=== PATIENT | female | born 1985 | race Caucasian/White ===

== ENCOUNTER 2016-08-10 10:03 | Emergency (ER) | payer BC ==
[2016-08-10 10:29] VITALS: TEMP 98
--- NOTE | 2016-08-10 11:32 | ED.PDOC ---
History of Present Illness - General Chief Complaint: Back Pain or Injury Stated Complaint: back pain Time Seen by Provider: 08/10/16 10:31 Source: patient Exam Limitations: no limitations - History of Present Illness Initial Comments: Patient presents with acute on chronic low back pain. She had a Rhizotomy almost two weeks ago. Is on Percocet but says that it isn't helping. Over the past week, she has had several episodes of her back "locking up". This morning she said she was leaning over and the pain caused her to fall to her knees. She says that she was told by her pain clinic to come to the ER for radiology. The pain is lower lumbar with radiation down both legs. No incontinence nor saddle anesthesia. Worse with movement, better with rest, multiple previous episodes. Aching and constant. No other complaints. Timing/Duration: constant, changing over time Severity: moderate Improving Factors: rest Worsening Factors: movement Associated Symptoms: denies symptoms Allergies/Adverse Reactions: Allergies Citalopram [From Celexa] Allergy (Verified 08/10/16 10:30) Morphine Allergy (Verified 08/10/16 10:30) Phenytoin [From Dilantin] Allergy (Verified 08/10/16 10:30) increases seizures Home Medications: Ambulatory Orders Sumatriptan Succinate 25 mg PO PRN PRN 04/21/14 Topiramate 100 mg PO DAILY 04/21/14 Acetaminophen W/ Codeine [Tylenol W/ CODEINE #3] 1 ea PO QID #14 11/21/14 Clindamycin HCl 300 mg PO Q8HRS #20 cap 11/21/14 Acetaminophen W/ Codeine [Tylenol W/ CODEINE #3] 1 - 2 ea PO Q4H PRN #20 Naproxen [Naprosyn] 500 mg PO BID #20 tab 12/05/14 Hydrocortisone 25 mg Supp [Anusol-Hc] 25 mg TN BID PRN #15 sup 07/29/15 Acetaminophen W/ Codeine [Tylenol w/Codeine 300-30 mg] 1 tab PO Q4HR PRN #30 tab 11/28/15 Prednisone [Deltasone] 20 mg PO DAILY #10 tab 11/28/15 Prednisone 10 mg PO BID #20 tab 01/22/16 Review of Systems - Review of Systems Constitutional: States: no symptoms reported EENTM: States: no symptoms reported Respiratory: States: no symptoms reported Cardiology: States: no symptoms reported Gastrointestinal/Abdominal: States: no symptoms reported Genitourinary: States: no symptoms reported Musculoskeletal: States: see HPI Skin: States: no symptoms reported Neurological: States: no symptoms reported Endocrine: States: no symptoms reported Hematologic/Lymphatic: States: no symptoms reported Past Medical History (General) - Patient Medical History Hx Seizures: Yes Hx Stroke: No Hx Dementia: No Hx Asthma: No Hx of COPD: No Hx Cardiac Disorders: No Hx Congestive Heart Failure: No Hx Pacemaker: No Hx Hypertension: No Hx Thyroid Disease: No Hx Diabetes: No Hx Gastroesophageal Reflux: No Hx Renal Disease: No Hx Cancer: No Hx of HIV: No Hx Hepatitis C: No Hx MRSA: No Surgical History: appendectomy, other - Vaccination History Hx Tetanus, Diphtheria Vaccination: No Hx Influenza Vaccination: No Hx Pneumococcal Vaccination: No - Social History Hx Tobacco Use: Yes Hx Chewing Tobacco Use: No Hx Alcohol Use: No Hx Substance Use: No Hx Substance Use Treatment: No Hx Depression: No Hx Physical Abuse: No Hx Emotional Abuse: No Hx Suspected Abuse: No - Activities of Daily Living Hospice Agency (if applicable):: None - Female History Patient is a Female of Child Bearing Age (10 -59 yrs old): Yes Patient : No Family Medical History - Family History Mother Family History: Unknown Physical Exam - Physical Exam General Appearance: Obvious distress Ears, Nose, Throat: normal ENT inspection Neck: non-tender, full range of motion, supple Respiratory: lungs clear Cardiovascular/Chest: regular rate, rhythm Gastrointestinal/Abdominal: normal bowel sounds, non tender, soft Extremity: other - positive straight and cross leg raises. Patient unable to cooperate with rest of exam due to pain. Neurologic: no motor/sensory deficits DTR: 2+: Patellar, left, Patellar, right Skin Exam: normal color Lymphatic: no adenopathy Progress - Progress Progress: 08/10/16 11:33 Toradol 30 mg IM x one. Patient given prescription for prednisone 20 mg po qd x 3 days and zofran 4 mg po q6H prn. We contacted her back pain doctor and verified that there was no radiology needed acutely. An appointment was made there and she was discharged in good condition. Departure - Departure Clinical Impression: Lumbar pain Disposition: Discharge to Home or Self Care Condition: Good Departure Forms: ED Discharge - Pt. Copy, Patient Portal Self Enrollment Diet: resume usual diet Activity: increase activity as tolerated Referrals: Kenton Fernando MD [Primary Care Provider] - 1-2 Weeks Home Medications: Ambulatory Orders Sumatriptan Succinate 25 mg PO PRN PRN 04/21/14 Topiramate 100 mg PO DAILY 04/21/14 Acetaminophen W/ Codeine [Tylenol W/ CODEINE #3] 1 ea PO QID #14 11/21/14 Clindamycin HCl 300 mg PO Q8HRS #20 cap 11/21/14 Acetaminophen W/ Codeine [Tylenol W/ CODEINE #3] 1 - 2 ea PO Q4H PRN #20 Naproxen [Naprosyn] 500 mg PO BID #20 tab 12/05/14 Hydrocortisone 25 mg Supp [Anusol-Hc] 25 mg TN BID PRN #15 sup 07/29/15 Acetaminophen W/ Codeine [Tylenol w/Codeine 300-30 mg] 1 tab PO Q4HR PRN #30 tab 11/28/15 Prednisone [Deltasone] 20 mg PO DAILY #10 tab 11/28/15 Prednisone 10 mg PO BID #20 tab 01/22/16 Additional Instructions: Follow up with your back surgeon tomorrow. Take medications as prescribed.
[2016-08-10] MEDS ORDERED: KETOROLAC TROMETHAMINE INJ 30 MG/ML VIAL IM ONE (11:41)
[2016-08-10 12:14] VITALS: BP 105/62; O2SAT 98
== END 2016-08-10 12:14 | disposition home or self-care (01) ==
LOC: ER 10:03
DX: M54.5 Low back pain (principal); G89.29 Other chronic pain; Z87.891 Personal history of nicotine dependence; Z79.899 Other long term (current) drug therapy; Z88.6 Allergy status to analgesic agent; Z88.8 Allergy status to other drugs, medicaments and biological substances

== ENCOUNTER 2017-02-13 17:10 | Emergency (ER) | payer BC ==
[2017-02-13 17:24] VITALS: TEMP 97.7; O2SAT 97
[2017-02-13] MEDS ORDERED: ONDANSETRON INJ 4 MG/2 ML VIAL IV ONE (17:48)
[2017-02-13] MEDS ORDERED: SODIUM CHLORIDE 0.9% 1000ML 1,000 ML IVS ONE (17:48)
--- NOTE | 2017-02-13 17:53 | ED.PDOC ---
History of Present Illness - General Source: patient, RN notes reviewed, Vital Signs reviewed, RN/MD Exam Limitations: no limitations - History of Present Illness Initial Comments: Patient presents to the ER with an episode of bradycardia. Reports she was doing housework and she bent down to get laundry out of the oven drier tender. When she stood back up she got lightheaded, dizzy, saw black spots and felt like she was going to pass out. She sat down and continued to be dizzy so she checked her pulse which went from 46 [address] Durbin's office, tubing drier , who advised her to call 911 and go to ER. She drove herself to the ER. She is feeling nauseated with some heartburn and "just not right". Denies chest pain or SOB. Spoke with Dr. Durbin who advised holding her Atenolol and having her follow up with him on . If still having issues with bradycardia will place a pacemaker. He did not feels she needed admission or extensive work up at this time as this is an ongoing issue with episodes of SVT, a. fib and bradycardia. Timing/Duration: 1-3 hours Severity: moderate Location: substernal Activities at Onset: activity - see above Prior Chest Pain/Cardiac Workup: cardiac cath, echocardiography, other - Had a loop recorder placed ~1 month ago Improving Factors: nothing Worsening Factors: nothing Nitro Today/Relief: no nitro taken today Aspirin Treatment Today: no aspirin today Associated Symptoms: nausea/vomiting <Cecilia Sevilla - Last Filed: 02/13/17 18:46> <Damian Harper - Last Filed: 02/13/17 19:44> - General Chief Complaint: Cardiovascular Problem Stated Complaint: bradycardia Time Seen by Provider: 02/13/17 17:15 - History of Present Illness Allergies/Adverse Reactions: Allergies Citalopram [From Celexa] Allergy (Verified 08/10/16 10:30) Morphine Allergy (Verified 08/10/16 10:30) Phenytoin [From Dilantin] Allergy (Verified 08/10/16 10:30) increases seizures Home Medications: Ambulatory Orders Atenolol [Tenormin] 12.5 mg PO DAILY 02/13/17 Furosemide 20 mg PO DAILY 02/13/17 Gabapentin 300 mg PO BID 02/13/17 Magnesium Chloride [Slow-Mag] 64 mg PO DAILY 02/13/17 Oxycodone W/ Acetaminophen [Percocet 10-325 mg] 1 tab PO TID 02/13/17 Pantoprazole Tablet [Protonix] 40 mg PO DAILY 02/13/17 Tizanidine HCl 4 mg PO TID 02/13/17 Review of Systems - Review of Systems Constitutional: States: no symptoms reported Respiratory: States: no symptoms reported. Denies: short of breath Cardiology: States: see HPI. Denies: chest pain Gastrointestinal/Abdominal: States: nausea. Denies: abdominal pain, vomiting Musculoskeletal: States: no symptoms reported Skin: States: no symptoms reported Neurological: States: see HPI All other Systems: No Change from Baseline <Cecilia Sevilla Last Filed: 02/13/17 18:46> Past Medical History (General) - Patient Medical History Hx Seizures: Yes Hx Stroke: No Hx Dementia: No Hx Asthma: No Hx of COPD: No Hx Cardiac Disorders: No Hx Congestive Heart Failure: No Hx Pacemaker: No Hx Hypertension: No Hx Thyroid Disease: No Hx Diabetes: No Hx Gastroesophageal Reflux: No Hx Renal Disease: No Hx Cancer: No Hx of HIV: No Hx Hepatitis C: No Hx MRSA: No Surgical History: appendectomy, other - Vaccination History Hx Tetanus, Diphtheria Vaccination: No Hx Influenza Vaccination: No Hx Pneumococcal Vaccination: No - Social History Hx Tobacco Use: Yes Hx Chewing Tobacco Use: No Hx Alcohol Use: No Hx Substance Use: No Hx Substance Use Treatment: No Hx Depression: No Hx Physical Abuse: No Hx Emotional Abuse: No Hx Suspected Abuse: No - Female History Patient : No <RoelCecilia Last Filed: 02/13/17 18:46> Family Medical History - Family History Mother Family History: Unknown <RoelCecilia Last Filed: 02/13/17 18:46> Physical Exam - Physical Exam General Appearance: Alert, Anxious, No apparent distress, Well Developed, Well Groomed, Well Hydrated, Well Nourished Neck: supple, normal inspection Respiratory: chest non-tender, lungs clear, normal breath sounds, no respiratory distress, no accessory muscle use Cardiovascular/Chest: no gallop, no murmur, bradycardia Extremity: normal range of motion, normal inspection Neurologic: alert, normal mood/affect, oriented x 3 Skin Exam: normal color, warm/dry Comments: Vital Signs 02/13/17 17:18 Temperature 97.7 F Pulse Rate [ 46 L apical] Respiratory 14 Rate Blood Pressure 122/64 [left brachial] O2 Sat by Pulse 97 Oximetry <Cecilia Sevilla - Last Filed: 02/13/17 18:46> Progress - Progress Progress: 02/13/17 18:37 HR has remained in the upper 40's to mid 50's 02/13/17 18:46 Patient given 1L NS bolus and Zofran. Now reports she feels a migraine coming on. Will give some Toradol as she normally takes AlevePM - EKG/XRAY/CT EKG: Isreal, Sinus, no ST T wave changes Comments: Rate 46 bpm <Cecilia Sevilla - Last Filed: 02/13/17 18:46> - Progress Progress: 02/13/17 19:43 discussed with patient her symptoms and presentation. Pt states that she feels improved but still has occ. palpitation. Discussed need for lab draw. pt initially refused but did consent with the compromise of her going home and being called if there is an abnormality. I explained to patient that I felt this was necessary given her lasix and magnesium supplementation. Pt will f/u with her pcp closely for further workup and will stop atenolol <Damian Harper - Last Filed: 02/13/17 19:44> Departure - Departure Diet: resume usual diet Activity: increase activity as tolerated <Cecilia Sevilla - Last Filed: 02/13/17 18:46> <Damian Harper - Last Filed: 02/13/17 19:44> - Departure Clinical Impression: Sinus bradycardia Disposition: Discharge to Home or Self Care Condition: Good Departure Forms: ED Discharge - Pt. Copy, Patient Portal Self Enrollment Instructions: Bradycardia Referrals: NEMO LAUREN [Primary Care Provider] - 1-2 Weeks Home Medications: Ambulatory Orders Atenolol [Tenormin] 12.5 mg PO DAILY 02/13/17 Furosemide 20 mg PO DAILY 02/13/17 Gabapentin 300 mg PO BID 02/13/17 Magnesium Chloride [Slow-Mag] 64 mg PO DAILY 02/13/17 Oxycodone W/ Acetaminophen [Percocet 10-325 mg] 1 tab PO TID 02/13/17 Pantoprazole Tablet [Protonix] 40 mg PO DAILY 02/13/17 Tizanidine HCl 4 mg PO TID 02/13/17 Additional Instructions: Follow up with Dr. Durbin, Lubrication Technician, on Monday02/15/17
[2017-02-13] MEDS ORDERED: KETOROLAC TROMETHAMINE INJ 30 MG/ML VIAL IV ONE (18:47)
[2017-02-13 20:14] VITALS: BP 112/74
== END 2017-02-13 20:15 | disposition home or self-care (01) ==
LOC: ER 17:10
DX: R00.1 Bradycardia, unspecified (principal); Z87.891 Personal history of nicotine dependence; Z88.8 Allergy status to other drugs, medicaments and biological substances; Z79.899 Other long term (current) drug therapy
CPT/HCPCS: 36415; 80048; 83735; 93005; J1885; J2405; J7030

== ENCOUNTER → 2017-05-29 | Outpatient (CLI) | payer BC ==
--- NOTE | 2017-05-29 16:38 | RAD ---
EXAM DESCRIPTION: Thoracic spine CLINICAL HISTORY: Back pain COMPARISON: Chest radiographs of March 21, 2013 TECHNIQUE: Three views of thoracic spine FINDINGS: Interval accentuation of thoracic kyphosis due to minimal to moderate anterior wedging in three consecutive thoracic vertebral level (T8-T10) since prior study. Remaining Thoracic vertebral heights are intact without apparent compression injury, obvious spondylolysis nor spondylolisthesis. Intervertebral disc heights are variably reduced IMPRESSION: Interval changes of compression injuries and vertebral plasty in three consecutive lower thoracic vertebral levels. No evidence of additional compression injury. Electronically signed by: Dudley Carvalho MD 05/29/2017 4:37 PM [facility]
== END ==
LOC: RAD 16:01
PROVIDERS: ATTEND Nurse Practitioner Family
DX: M54.6 Pain in thoracic spine (principal)

== ENCOUNTER 2017-08-14 20:30 | Emergency (ER) | payer BC ==
[2017-08-14] MEDS ORDERED: SODIUM CHLORIDE 0.9% 1000ML 1,000 ML IVS ONE (21:05)
[2017-08-14] MEDS ORDERED: NALOXONE HCL INJ 1 MG/ML SYG IV ONE (21:05)
--- NOTE | 2017-08-14 21:09 | ED.PDOC ---
History of Present Illness - General Chief Complaint: Neuro Symptoms/Deficits Stated Complaint: altered mental status Time Seen by Provider: 08/14/17 21:02 Source: family Exam Limitations: clinical condition - History of Present Illness Timing/Duration: unsure, 1-3 hours, other - pt was normal at 1600 hrs. 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 Severity: severe Improving Factors: nothing Worsening Factors: nothing Associated Symptoms: denies symptoms Allergies/Adverse Reactions: Allergies Citalopram [From Celexa] Allergy (Verified 08/10/16 10:30) Morphine Allergy (Verified 08/10/16 10:30) Phenytoin [From Dilantin] Allergy (Verified 08/10/16 10:30) increases seizures Home Medications: Ambulatory Orders Magnesium Chloride [Slow-Mag] 64 mg PO DAILY 02/13/17 Pantoprazole Tablet [Protonix] 40 mg PO DAILY 02/13/17 Bupropion HCl [Bupropion HCl ER] 100 mg PO 08/14/17 Cyclobenzaprine HCl 10 mg PO 08/14/17 Flecainide [Tambocor] 50 mg PO 08/14/17 Meloxicam 7.5 mg PO 08/14/17 Promethazine HCl 08/14/17 Review of Systems - Review of Systems Unable to Obtain Due To: condition - pt is poorly responsive Past Medical History (General) - Patient Medical History Hx Seizures: Yes Hx Stroke: No Hx Dementia: No Hx Asthma: No Hx of COPD: No Hx Cardiac Disorders: No Hx Congestive Heart Failure: No Hx Pacemaker: No Hx Hypertension: No Hx Thyroid Disease: No Hx Diabetes: No Hx Gastroesophageal Reflux: No Hx Renal Disease: No Hx Cancer: No Hx of HIV: No Hx Hepatitis C: No Hx MRSA: No - Vaccination History Hx Tetanus, Diphtheria Vaccination: No Hx Influenza Vaccination: No Hx Pneumococcal Vaccination: No Immunizations Up to Date: No - Social History Hx Tobacco Use: Yes Hx Chewing Tobacco Use: No Hx Alcohol Use: Yes - occasional Hx Substance Use: Yes - Marijuana Hx Substance Use Treatment: No Hx Depression: No Hx Physical Abuse: No Hx Emotional Abuse: No Hx Suspected Abuse: No - Female History Patient : No Family Medical History - Family History Mother Family History: Unknown Physical Exam - Physical Exam General Appearance: Well Nourished, Other - very somnolent Eye Exam: bilateral normal Ears, Nose, Throat: normal ENT inspection, normal pharynx Neck: non-tender, full range of motion Respiratory: lungs clear, no respiratory distress Cardiovascular/Chest: normal peripheral pulses, regular rate, rhythm, no edema Gastrointestinal/Abdominal: normal bowel sounds, non tender, soft Neurologic: other - very somnolent Skin Exam: normal color, warm/dry Progress - EKG/XRAY/CT EKG: Sinus, no ST T wave changes Comments: rate 75, WI 150, QRS 98, QTc 475 Departure - Departure Clinical Impression: Alcohol use with intoxication Disposition: Discharge to Home or Self Care Departure Forms: ED Discharge - Pt. 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
--- NOTE | 2017-08-14 22:03 | RAD ---
EXAM DESCRIPTION: Chest,1 View CLINICAL HISTORY: ams COMPARISON: 05/29/2017 FINDINGS: Cardiac silhouette is within normal limits. There is no focal parenchymal or pleural disease. Visualized osseous structures are within normal limits. IMPRESSION: No evidence of acute cardiopulmonary disease. Electronically signed by: Grey Che 08/14/2017 10:01 PM CDT
--- NOTE | 2017-08-14 22:05 | CT ---
EXAM DESCRIPTION: Head CLINICAL HISTORY: ams COMPARISON: January 26, 2013 TECHNIQUE: Contiguous axial CT images of the head were obtained. Coronal and sagittal reconstructions were created from the axial data. This exam was performed according to our departmental dose-optimization program, which includes automated exposure control, adjustment of the mA and/or kV according to patient size and/or use of iterative reconstruction technique. FINDINGS: Positioning limits sensitivity. There is no evidence of acute mass, mass effect, midline shift or hemorrhage. The ventricles and extra-axial CSF spaces are unremarkable. The brain parenchyma appears normal for the patient's age. No acute abnormalities of the bones is seen. IMPRESSION: No acute intracranial abnormality. Electronically signed by: Grey Che 08/14/2017 10:04 PM CDT
[2017-08-14 22:39] VITALS: BP 118/68; TEMP 97.2; O2SAT 97
== END 2017-08-14 22:39 | disposition home or self-care (01) ==
LOC: ER 20:30
DX: F10.129 Alcohol abuse with intoxication, unspecified (principal); Y90.7 Blood alcohol level of 200-239 mg/100 ml; Z87.891 Personal history of nicotine dependence
CPT/HCPCS: 36415; 36600; 70450; 71045; 80053; 80307; 80320; 81001; 81025; 82803; 82805; 85025; 93005; J2310; J7030

== ENCOUNTER → 2017-08-14 | Outpatient (CLI) | payer BC ==
--- NOTE | 2017-08-14 15:52 | US ---
EXAM DESCRIPTION: Breast,Right: Ultrasound CLINICAL HISTORY: 31 yearsFemaleUNSPECIFIED LUMP lateral to the nipple, patient feels pulling sensation to the left arm.. COMPARISON: none. TECHNIQUE: Transcutaneous scanning of the right breast utilizing two-dimensional and Doppler modes. Scanning performed by the mac developer and Dr. Freeman. FINDINGS: Scanning the periareolar soft tissues and lateral breast from the nipple to the axilla. Mostly fibroglandular echotexture with minimal fatty echotexture. No distinct solid mass or cyst. No parenchymal edema or large calcifications. Normal Doppler vascularity. No overlying skin changes. IMPRESSION: BI-RADS CATEGORY: 2 - BENIGN FINDINGS. FOLLOW UP: Routine digital bilateral screening, at age 38. The FINDINGS and the FOLLOW-UP plan were reviewed in person with the patient after the examination. Written communication explaining the IMPRESSION and FOLLOW-UP will be mailed to the patient and referring care provider. According to the [employer], yearly mammograms are recommended starting at age 40 and continuing as long as a woman is in good health. Any breast change noted on a breast self-exam should be reported promptly to the patient's healthcare provider. Breast MRI is recommended for women with an approximately 20-25% or greater lifetime risk of breast cancer, including women with a strong family history of breast or ovarian cancer and women who have been treated for Hodgkin's disease. A negative ultrasound report should not delay tissue diagnosis in patients with significant clinical history or physical findings. Extremely dense breast tissue limits the sensitivity of digital mammography. Electronically signed by: Gery Freeman MD 08/14/2017 3:51 PM CDT
== END ==
LOC: US 09:22
PROVIDERS: ATTEND Nurse Practitioner Family
DX: N63.0 Unspecified lump in unspecified breast (principal)

== ENCOUNTER → 2017-10-13 | Outpatient (CLI) | payer BC | LOC: LAB.O 10-12 17:12 | PROVIDERS: ATTEND Nurse Practitioner Family | DX: R23.3 Spontaneous ecchymoses (principal) ==

== ENCOUNTER → 2017-10-19 | Outpatient (CLI) | payer BC ==
--- NOTE | 2017-10-19 09:33 | MRI ---
EXAM DESCRIPTION: Lumbar Spine w/o Contrast CLINICAL HISTORY: 32 years Female, DISC DISORDER LUMBAR REGION COMPARISON: None available. TECHNIQUE: Multiplanar multiecho imaging of the lumbar spine was performed without intravenous contrast administration. FINDINGS: The vertebral body heights are well-maintained with no acute compression deformity. Multilevel intervertebral disc space narrowing is noted. The conus medullaris terminates at L1 vertebral body. The visualized spinal cord demonstrates no signal abnormality. L1-L2: No disc bulge. Mild facet arthropathy. L2-L3: No disc bulge. Mild facet arthropathy. L3-L4: No disc bulge. Bilateral facet arthropathy. L4-L5: No disc bulge. Bilateral facet arthropathy. L5-S1: Mild diffuse disc bulge asymmetric to the left with resultant abutment of the exiting left L5 nerve root. Facet arthropathy with resultant mild bilateral neural foraminal narrowing. The visualized prevertebral and paravertebral soft tissues appear unremarkable. IMPRESSION: Mild disc bulge at L5-S1 level abutting the exiting left L5 nerve root. Mild neural foraminal narrowing is noted at this level secondary to facet arthropathy. Electronically signed by: Becca Waller MD 10/19/2017 9:32 AM CDT
== END ==
LOC: MRI 07:07
PROVIDERS: ATTEND Nurse Practitioner Family
DX: M51.86 Other intervertebral disc disorders, lumbar region (principal)

== ENCOUNTER 2017-11-19 00:46 | Emergency (ER) | payer BC ==
[2017-11-19 01:09] VITALS: TEMP 97.7
[2017-11-19] MEDS ORDERED: SODIUM CHLORIDE 0.9% 1000ML 1,000 ML IVS ONE (01:32)
--- NOTE | 2017-11-19 04:02 | ED.PDOC ---
History of Present Illness - General Chief Complaint: Neuro Symptoms/Deficits Stated Complaint: SZ Time Seen by Provider: 11/19/17 00:54 Source: patient Exam Limitations: no limitations, clinical condition - History of Present Illness Initial Comments: the patient is a 32-year-old female presenting to the emergency room secondary to seizure activity. The patient was brought by EMS. The patient actually been picked up by the police for intoxication when she had a seizure in the back seat here, the patient was postictal. We did witness another generalized seizure here which was essentially tonic in nature. The patient did receive 2 mg of Ativan while pleasant as well as IV fluids. There is no evidence of trauma. Family states patient went off seizure medication some time ago. She did this voluntarily and has approximately one seizure a couple of months Timing/Duration: 1/2 hour Severity: moderate Improving Factors: nothing Worsening Factors: nothing Allergies/Adverse Reactions: Allergies Citalopram [From Celexa] Allergy (Verified 11/19/17 01:07) Morphine Allergy (Verified 11/19/17 01:07) Phenytoin [From Dilantin] Allergy (Verified 11/19/17 01:07) increases seizures Home Medications: Ambulatory Orders Magnesium Chloride [Slow-Mag] 64 mg PO DAILY 02/13/17 Pantoprazole Tablet [Protonix] 40 mg PO DAILY 02/13/17 Bupropion HCl [Bupropion HCl ER] 150 mg PO BID 08/14/17 Cyclobenzaprine HCl 10 mg PO TID 08/14/17 Flecainide [Tambocor] 50 mg PO BID 08/14/17 Review of Systems - Review of Systems Constitutional: States: malaise EENTM: States: no symptoms reported Respiratory: States: no symptoms reported Cardiology: States: no symptoms reported Gastrointestinal/Abdominal: States: no symptoms reported Genitourinary: States: no symptoms reported Musculoskeletal: States: no symptoms reported Skin: States: no symptoms reported Neurological: States: seizure, other Endocrine: States: no symptoms reported All other Systems: No Change from Baseline Past Medical History (General) - Patient Medical History Hx Seizures: Yes Hx Stroke: No Hx Dementia: No Hx Asthma: No Hx of COPD: No Hx Cardiac Disorders: No Hx Congestive Heart Failure: No Hx Pacemaker: No Hx Hypertension: No Hx Thyroid Disease: No Hx Diabetes: No Hx Gastroesophageal Reflux: No Hx Renal Disease: No Hx Cancer: No Hx of HIV: No Hx Hepatitis C: No Hx MRSA: No - Vaccination History Hx Tetanus, Diphtheria Vaccination: - UNKNOWN Hx Influenza Vaccination: - UNKNOWN Hx Pneumococcal Vaccination: - UNKNOWN - Social History Hx Tobacco Use: - UNKNOWN Hx Chewing Tobacco Use: No Hx Alcohol Use: Yes - UNDER THE INFLUENCE AT TIME TIME Hx Substance Use: Yes - Marijuana Hx Substance Use Treatment: - UNKNOWN Hx Depression: No Hx Physical Abuse: No Hx Emotional Abuse: No Hx Suspected Abuse: No - Female History Patient is a Female of Child Bearing Age (10 -59 yrs old): Yes Patient : No - Triage Comment ED Triage Comment: UNKNOWN OF LAST MENTRAL PERIOD D/T PATIENT STATUS Family Medical History - Family History Mother Family History: Unknown Physical Exam - Physical Exam General Appearance: Lethargic Eye Exam: bilateral normal Ears, Nose, Throat: hearing grossly normal Neck: full range of motion, supple Respiratory: lungs clear, normal breath sounds, no respiratory distress, no accessory muscle use Cardiovascular/Chest: normal peripheral pulses, regular rate, rhythm, no edema Peripheral Pulses: radial,right: 2+, radial,left: 2+, dorsalis pedis,right: 2+, dorsalis pedis,left: 2+ Gastrointestinal/Abdominal: non tender, soft Rectal Exam: deferred Back Exam: no CVA tenderness, no vertebral tenderness Extremity: normal range of motion, non-tender, normal inspection, no pedal edema , normal capillary refill Neurologic: other - initially the patient has postictal and fairly lethargic. After postictal. The patient is alert and oriented 3 and i distress. Skin Exam: normal color - several tattoos Comments: Vital Signs - 24 hr 11/19/17 11/19/17 11/19/17 00:57 01:48 01:56 Temperature 97.7 F Pulse Rate [ 107 H 96 H 87 MONITOR] Respiratory 16 18 18 Rate Blood Pressure 142/94 90/41 [RA] O2 Sat by Pulse 97 97 Oximetry 11/19/17 11/19/17 02:46 03:17 Temperature Pulse Rate [ 91 H 84 MONITOR] Respiratory 16 16 Rate Blood Pressure 93/61 94/54 [RA] O2 Sat by Pulse 98 Oximetry Progress - Progress Progress: 11/19/17 04:04 the patient is a 32-year-old female presenting to the emergency room secondary to generalized seizure activity. These were likely triggered by polysubstance use including alcohol and marijuana. Seizure restrictions do apply. The patient received a liter of IV fluids and 2 mg of Ativan while present. The patient is doing better. She will be dismissed with family. She needs to keep follow-up with her primary care doctor. ER warnings were given. Avoid substance use. - Results/Orders Results/Orders: 11/19/17 00:55 Telemetry .CONTINUOUS Laboratory Results - last 24 hr 11/19/17 11/19/17 11/19/17 00:55 00:56 00:56 WBC 6.3 RBC 4.87 Hgb 15.0 Hct 43.8 MCV 89.9 MCH 30.7 MCHC 34.2 RDW 13.6 Plt Count 257 MPV 7.3 L Absolute Neuts (auto) 4.30 Absolute Lymphs (auto) 1.50 Absolute Monos (auto) 0.40 Absolute Eos (auto) 0.10 Absolute Basos (auto) 0.00 Neutrophils % 68.0 Lymphocytes % 23.1 Monocytes % 6.5 Eosinophils % 2.0 Basophils % 0.4 Sodium 138 Potassium 3.7 Chloride 105 Carbon Dioxide 23 Anion Gap 13.7 BUN 7 Creatinine 0.75 BUN/Creatinine Ratio 9.3 L Random Glucose 104 Serum Osmolality 274.0 L Calcium 8.6 Magnesium 2.0 Total Bilirubin 0.2 AST 16 ALT 12 Alkaline Phosphatase 86 Serum Total Protein 7.4 Albumin 4.3 Globulin 3.1 Albumin/Globulin Ratio 1.4 Serum HCG, Qual Urine Opiates Screen Urine Barbiturates Ur Phencyclidine Scrn U Amphetamin/Meth Scrn U Benzodiazepines Scrn U Cocaine Metab Screen U Cannabinoids Screen Ethyl Alcohol 218.00 H* 11/19/17 11/19/17 00:56 00:56 WBC RBC Hgb Hct MCV MCH MCHC RDW Plt Count MPV Absolute Neuts (auto) Absolute Lymphs (auto) Absolute Monos (auto) Absolute Eos (auto) Absolute Basos (auto) Neutrophils % Lymphocytes % Monocytes % Eosinophils % Basophils % Sodium Potassium Chloride Carbon Dioxide Anion Gap BUN Creatinine BUN/Creatinine Ratio Random Glucose Serum Osmolality Calcium Magnesium Total Bilirubin AST ALT Alkaline Phosphatase Serum Total Protein Albumin Globulin Albumin/Globulin Ratio Serum HCG, Qual Negative Urine Opiates Screen Negative Urine Barbiturates Negative Ur Phencyclidine Scrn Negative U Amphetamin/Meth Scrn Negative U Benzodiazepines Scrn Negative U Cocaine Metab Screen Negative U Cannabinoids Screen Positive H Ethyl Alcohol - EKG/XRAY/CT CT Ordered: No CT Interpretation Call Back: No Departure - Departure Clinical Impression: Polysubstance abuse Epilepsy Qualifiers: Epilepsy type: generalized idiopathic Intractability: not intractable Status epilepticus: without status epilepticus Qualified Code(s): G40.309 - Generalized idiopathic epilepsy and epileptic syndromes, not intractable, without status epilepticus Disposition: Discharge to Home or Self Care Condition: Fair Departure Forms: ED Discharge - Pt. Copy, Patient Portal Self Enrollment Instructions: Seizures, Adult (DC) Diet: regular diet Activity: increase activity as tolerated - Seizure restrictions to apply Referrals: ROMI CORONADO IV ADJUNCT PHLEBOTOMY INSTRUCTOR [Primary Care Provider] - 1-2 Weeks Home Medications: Ambulatory Orders Magnesium Chloride [Slow-Mag] 64 mg PO DAILY 02/13/17 Pantoprazole Tablet [Protonix] 40 mg PO DAILY 02/13/17 Bupropion HCl [Bupropion HCl ER] 150 mg PO BID 08/14/17 Cyclobenzaprine HCl 10 mg PO TID 08/14/17 Flecainide [Tambocor] 50 mg PO BID 08/14/17 Additional Instructions: the patient is a 32-year-old female presenting to the emergency room secondary to generalized seizure activity. These were likely triggered by polysubstance use including alcohol and marijuana. Seizure restrictions do apply. The patient received a liter of IV fluids and 2 mg of Ativan while present. The patient is doing better. She will be dismissed with family. She needs to keep follow-up with her primary care doctor. ER warnings were given. Avoid substance use.
[2017-11-19 04:25] VITALS: BP 102/58; O2SAT 99
== END 2017-11-19 04:26 | disposition home or self-care (01) ==
LOC: ER 00:46
DX: G40.309 Generalized idiopathic epilepsy and epileptic syndromes, not intractable, without status epilepticus (principal); F10.10 Alcohol abuse, uncomplicated; F12.10 Cannabis abuse, uncomplicated; Z79.899 Other long term (current) drug therapy; Z88.5 Allergy status to narcotic agent; Z88.8 Allergy status to other drugs, medicaments and biological substances
CPT/HCPCS: 36415; 80053; 80307; 80320; 83735; 84703; 85025; J2060; J7030

== ENCOUNTER → 2018-08-27 | Outpatient (CLI) | payer BC ==
--- NOTE | 2018-08-27 14:54 | CT ---
Procedure: CT ABDOMEN PELVIS WITH IV CONTRAST Exam Date: 08/27/2018 Ordering Provider: ROMI CORONADO Clinical Indication: GENERALIZED ABD PAIN Comparison: None TECHNIQUE: 5 mm images were taken through the abdomen and pelvis after the administration of nonionic intravenous contrast material. Oral contrast was not administered. Coronal and sagittal reformatted images were generated. This exam was performed according to our departmental dose optimization program which includes use of automated exposure control, adjustment of the mA and/or kV according to patient size and/or use of iterative reconstruction technique. FINDINGS: Lower chest: Unremarkable Abdomen: Liver and biliary system: Subcentimeter liver lesions are too small to characterize. No biliary ductal dilatation. No calcified gallstones. Spleen: Unremarkable Pancreas: Unremarkable Adrenal glands: Unremarkable Kidneys, ureters, bladder: Punctate nonobstructing stones in both kidneys. No hydronephrosis in either kidney. Ureters and bladder are unremarkable. Lymph nodes: No lymphadenopathy Retroperitoneum, abdominal wall, peritoneal cavity: Small amount of pelvic free fluid is likely physiologic. No free air. Vessels: No abdominal aortic aneurysm. Bowel: Colonic diverticulosis without evidence of diverticulitis. Prior appendectomy. No bowel obstruction. Pelvic organs: There is a tampon in the vagina. Bones: Prior vertebral body augmentation at T9. IMPRESSION: 1. Punctate nonobstructing stones in both kidneys. 2. Colonic diverticulosis without evidence of diverticulitis. 3. Prior appendectomy. Electronically signed by: Blaise Finch MD 08/27/2018 2:52 PM CDT
== END ==
LOC: LAB.O 12:39
PROVIDERS: ATTEND Nurse Practitioner Family
DX: N20.0 Calculus of kidney (principal); K57.30 Diverticulosis of large intestine without perforation or abscess without bleeding; Z90.89 Acquired absence of other organs

== ENCOUNTER → 2018-10-31 | Outpatient (CLI) | payer BC ==
[~2018-10-31] MED LIST: IPRATROPIUM/ALBUTEROL 3 ML VIAL NEB ONE
== END ==
LOC: RESP 10:04
PROVIDERS: ATTEND Nurse Practitioner Family
DX: J44.9 Chronic obstructive pulmonary disease, unspecified (principal)
CPT/HCPCS: 94060; J7620

== ENCOUNTER 2018-11-08 11:01 | Emergency (ER) | payer BC ==
--- NOTE | 2018-11-08 12:31 | ED.PDOC ---
History of Present Illness - General Chief Complaint: Problem Stated Complaint: L sided/back pain Time Seen by Provider: 11/08/18 12:14 Source: patient Exam Limitations: no limitations - History of Present Illness Initial Comments: Starr Ewing 33 y/o female stated that she had been having intermittent sharp left flank pain for the last one week statin had previous kidney stone in the past.Also felt dul rlq pain today with history of N/V/D 2-3 days ago getting better.Had also bee treated for C.Diff infection 3 weeks ago. Denies blood in urine,fever,chills. Timing/Duration: week - one Quality: moderate, intermittent, sharpness Radiation: left flank Activites at Onset: none Prior abdominal problems: none Sexual intercourse history: greater than 2 months ago Improving Factors: nothing Worsening Factors: nothing Associated Symptoms: other - see hpi Allergies/Adverse Reactions: Allergies Cephalexin [From Keflex] Allergy (Verified 11/08/18 11:44) Citalopram [From Celexa] Allergy (Verified 11/08/18 11:44) Morphine Allergy (Verified 11/08/18 11:44) Phenytoin [From Dilantin] Allergy (Verified 11/08/18 11:44) increases seizures Home Medications: Ambulatory Orders Acetaminophen W/ Codeine [Tylenol/Codeine #4 300-60 mg] 1 ea PO Q4HR PRN #14 tab 11/08/18 Carisoprodol [Soma] 350 mg PO TID PRN #14 tab 11/08/18 Varenicline [Chantix] 0.5 mg PO DAILY 11/08/18 Review of Systems - Review of Systems Gastrointestinal/Abdominal: States: see HPI, diarrhea, other - left flank pain All other Systems: Reviewed and Negative, No Change from Baseline Past Medical History (General) - Patient Medical History Hx Seizures: Yes Hx Stroke: No Hx Dementia: No Hx Asthma: No Hx of COPD: Yes Hx Cardiac Disorders: Yes - Afib/SVT Hx Congestive Heart Failure: No Hx Pacemaker: No Hx Hypertension: No Hx Thyroid Disease: No Hx Diabetes: No Hx Gastroesophageal Reflux: No Hx Renal Disease: No Hx Cancer: No Hx of HIV: No Hx Hepatitis C: No Hx MRSA: No Surgical History: appendectomy, other - loop recorder;btl - Vaccination History Hx Tetanus, Diphtheria Vaccination: No Hx Influenza Vaccination: No Hx Pneumococcal Vaccination: No - Social History Hx Tobacco Use: Yes Hx Chewing Tobacco Use: No Hx Alcohol Use: Yes Hx Substance Use: No Hx Substance Use Treatment: No Hx Depression: No Hx Physical Abuse: No Hx Emotional Abuse: No Hx Suspected Abuse: No - Female History Patient is a Female of Child Bearing Age (10 -59 yrs old): Yes Hx Last Menstrual Period: 10/25/18 Patient : No - Denies Family Medical History - Family History Mother Family History: Unknown Living Status: Unknown Hx Cardiac Disease: Yes - dad Hx Family;Other: Seizure-mom sister;Kidney stone siblings Physical Exam - Physical Exam General Appearance: Alert, Comfortable, No apparent distress Eyes, Ears, Nose, Throat Exam: normal ENT inspection Neck: normal inspection Cardiovascular/Respiratory: regular rate, rhythm, no M/R/G, normal peripheral pulses, normal breath sounds Gastrointestinal/Abdominal: normal bowel sounds, non tender, soft, other Back Exam: no CVA tenderness, no vertebral tenderness, CVA tenderness (L) Neurologic: alert, oriented x 3 Skin Exam: normal color, warm/dry Progress - Progress Progress: 11/08/18 12:35 Vital Signs 11/08/18 11:20 Temperature 97.6 F Pulse Rate [R 79 finger] Respiratory 18 Rate Blood Pressure 130/79 [R brachial] O2 Sat by Pulse 99 Oximetry - Results/Orders Results/Orders: 11/08/18 12:36 IV Care:Saline Lock per Protoc QSHIFT CLOSTRIDIUM DIFFICILE AG/TOXIN Urgent Laboratory Results - last 24 hr 11/08/18 11/08/18 11/08/18 11:45 11:49 11:49 WBC 5.3 RBC 4.96 Hgb 15.8 Hct 45.5 MCV 91.7 MCH 31.9 H MCHC 34.8 RDW 12.8 Plt Count 209 MPV 7.5 Absolute Neuts (auto) 3.50 Absolute Lymphs (auto) 1.20 Absolute Monos (auto) 0.60 Absolute Eos (auto) 0.10 Absolute Basos (auto) 0.00 Neutrophils % 65.3 Lymphocytes % 22.2 Monocytes % 10.6 H Eosinophils % 1.5 Basophils % 0.4 Sodium 137 Potassium 3.9 Chloride 103 Carbon Dioxide 25 Anion Gap 12.9 BUN 12 Creatinine 0.74 BUN/Creatinine Ratio 16.2 Random Glucose 64 L Serum Osmolality 271.7 L Calcium 9.3 Total Bilirubin 0.5 AST 18 ALT 11 Alkaline Phosphatase 55 Serum Total Protein 7.0 Albumin 4.0 Globulin 3.0 Albumin/Globulin Ratio 1.3 Urine Color Dk yellow H Urine Appearance Clear Urine pH 6.5 Ur Specific [place] 1.020 Urine Protein Negative Urine Glucose (UA) Negative Urine Ketones Trace Urine Blood Negative Urine Nitrite Negative Urine Bilirubin Negative Urine Urobilinogen 0.2 Ur Leukocyte Esterase Negative Urine RBC 0-1 Urine WBC 0-1 Ur Epithelial Cells 1-3 Urine Bacteria Rare Urine HCG, Qual 11/08/18 11:49 WBC RBC Hgb Hct MCV MCH MCHC RDW Plt Count MPV Absolute Neuts (auto) Absolute Lymphs (auto) Absolute Monos (auto) Absolute Eos (auto) Absolute Basos (auto) Neutrophils % Lymphocytes % Monocytes % Eosinophils % Basophils % Sodium Potassium Chloride Carbon Dioxide Anion Gap BUN Creatinine BUN/Creatinine Ratio Random Glucose Serum Osmolality Calcium Total Bilirubin AST ALT Alkaline Phosphatase Serum Total Protein Albumin Globulin Albumin/Globulin Ratio Urine Color Urine Appearance Urine pH Ur Specific [place] Urine Protein Urine Glucose (UA) Urine Ketones Urine Blood Urine Nitrite Urine Bilirubin Urine Urobilinogen Ur Leukocyte Esterase Urine RBC Urine WBC Ur Epithelial Cells Urine Bacteria Urine HCG, Qual Negative Discuss all test result with patient no change from previous CT abdomen 27 August 2018 Departure - Departure Clinical Impression: Left flank pain Diarrhea Qualifiers: Diarrhea type: unspecified type Qualified Code(s): R19.7 - Diarrhea, unspecified Time of Disposition: 14:25 Disposition: Discharge to Home or Self Care Condition: Fair Departure Forms: ED Discharge - Pt. Copy, Patient Portal Self Enrollment Instructions: DI for Kidney Stones Referrals: ROMI CORONADO IV, RIB [employer] KNITTER [Primary Care Provider] - 1-2 Weeks Prescriptions: Acetaminophen W/ Codeine [Tylenol/Codeine #4 300-60 mg] 1 ea PO Q4HR PRN #14 tab PRN Reason: Pain Carisoprodol [Soma] 350 mg PO TID PRN #14 tab PRN Reason: Muscle Spasms Home Medications: Ambulatory Orders Acetaminophen W/ Codeine [Tylenol/Codeine #4 300-60 mg] 1 ea PO Q4HR PRN #14 tab 11/08/18 Carisoprodol [Soma] 350 mg PO TID PRN #14 tab 11/08/18 Varenicline [Chantix] 0.5 mg PO DAILY 11/08/18 Additional Instructions: Return to Emergency Room as needed;Follow up with primary MD 12 November 2018 for recheck
[2018-11-08] MEDS ORDERED: PROCHLORPERAZINE INJ 10 MG/2 ML VIAL IV ONE (12:36)
[2018-11-08] MEDS ORDERED: KETOROLAC TROMETHAMINE INJ 30 MG/ML VIAL IV ONE (12:36)
[2018-11-08] MEDS ORDERED: fentaNYL CITRATE INJ 50 MCG/ML AMP IV ONE (12:36)
[2018-11-08] MEDS ORDERED: LACTATED RINGERS 1,000 ML IVS ONE (12:38)
--- NOTE | 2018-11-08 13:20 | CT ---
EXAM DESCRIPTION: Abdoment/Pelvis w/o Contrast CLINICAL HISTORY: 33 years, Female, left flank pain COMPARISON: Previous CT abdomen and pelvis August 27, 2018 TECHNIQUE: CT of the abdomen and pelvis is performed according to our non contrast protocol. FINDINGS: The lung bases are clear. Small cyst or an enhancing meningioma in the lateral segment left lobe liver measures 8 mm. This was present on the previous study August 27, 2018 and is unchanged in size Liver, spleen, and pancreas are otherwise unremarkable. No calcified stones in the gallbladder. Adrenal glands appear normal. The right kidney contains a 1 mm calculus in the posterior midportion and 3.5 mm calculus in the lower calyx without hydronephrosis. The left kidney contains a 2 mm calculus in the midportion and a 1 mm calculus in the lower calyx. No left-sided hydronephrosis. Small bowel loops appear normal in caliber with normal wall thickness. There is no lymphadenopathy, inflammation, or free fluid observed. In the pelvis, the appendix is surgically absent. No inflammation around the cecum or terminal ileum or sigmoid colon. No stones in the distal ureters or bladder. Rectal wall thickness is normal for degree of distention. No free fluid or mass in the pelvis. Uterus appears normal. No ovarian enlargement. No inguinal or lower pelvic adenopathy. Coronal and sagittal reformatted images confirm the findings. IMPRESSION: Bilateral renal calculi without obstructive uropathy. This exam was performed according to our departmental dose-optimization program, which includes automated exposure control, adjustment of the mA and/or kV according to patient size and/or use of iterative reconstruction technique. Total DLP equals 521.04 mGycm. Electronically signed by: Silver Ramirez MD 11/08/2018 1:19 PM CDT
[2018-11-08 19:46] VITALS: BP 123/76; TEMP 97.5; O2SAT 100
== END 2018-11-08 14:56 | disposition home or self-care (01) ==
LOC: ER 11:01
DX: R10.9 Unspecified abdominal pain (principal); R19.7 Diarrhea, unspecified; J44.9 Chronic obstructive pulmonary disease, unspecified; I48.91 Unspecified atrial fibrillation; Z87.891 Personal history of nicotine dependence; Z90.49 Acquired absence of other specified parts of digestive tract
CPT/HCPCS: 74176; 80053; 81001; 81025; 85025; J0780; J1885; J3010; J7120

== ENCOUNTER → 2019-03-15 | Outpatient (CLI) | payer BC ==
--- NOTE | 2019-03-16 17:15 | US ---
EXAM DESCRIPTION: Pelvic,Non-OB: Ultrasound. CLINICAL HISTORY: 33 years Female excessive and frequent menstruation with regular cycle. LMP 02/13/2019. 3, para 2, AB 1. COMPARISON: CT scan abdomen and pelvis October 2018. TECHNIQUE: Transcutaneous scanning through the urine filled bladder. Endovaginal scanning. Luther-scale and Doppler modes. FINDINGS: Uterus 8.5 x 4.8 x 3.9 cm. 85.4 mL. Endometrium 5.3 mm.. Heterogeneous mass measuring 1.3 x 1.4 x 1.1 cm, consistent with a fibroid, minimal vascularity. Myometrium heterogeneous. Uterus not retroverted. Cervix unremarkable. Cul-de-sac: No fluid.. Right ovary 3.3 x 3.0 x 2.6 cm. 14.5 mL. Normal waveform and color Doppler vascularity. 2.2 cm simple cyst. Nonvascular. No adnexal mass or free fluid. Left ovary 2.6 x 1.7 x 1.5 cm. 3.8 mL. Normal waveform and color Doppler vascularity. No follicles or cysts. No adnexal mass or free fluid. Increased vessels on color Doppler. IMPRESSION: 1. Normal size and orientation of the uterus. No endometrial thickening. 1.3 cm fibroid. 2. Enlarged right ovary with 2.2 cm simple cyst. 2.2 cm simple ovarian cyst. No follow-up imaging is recommended. Reference: Radiology 2010 Nov;256(3):943-54. 3. Left ovary is unremarkable. However, increased vascularity in the left adnexa, but no mass. Possible paraovarian varix. Electronically signed by: Grey Freeman MD 03/16/2019 5:14 PM [facility]
== END ==
LOC: LAB.O 12:18
PROVIDERS: ATTEND Nurse Practitioner Family
DX: N92.0 Excessive and frequent menstruation with regular cycle (principal); D25.9 Leiomyoma of uterus, unspecified; N83.201 Unspecified ovarian cyst, right side

== ENCOUNTER 2019-04-01 10:44 | Emergency (ER) | payer BC ==
[2019-04-01] MEDS ORDERED: SODIUM CHLORIDE 0.9% (FLUSH) 10 ML SYG IV PRN (10:57)
[2019-04-01] MEDS ORDERED: ONDANSETRON INJ 4 MG/2 ML VIAL IV ONE (10:57)
[2019-04-01] MEDS ORDERED: PANTOPRAZOLE SODIUM IV 40 MG VIAL IV ONE (10:58)
[2019-04-01] MEDS ORDERED: ALBUTEROL SULFATE 2.5 MG/3 ML VIAL NEB ONE (10:59)
--- NOTE | 2019-04-01 11:05 | ED.PDOC ---
History of Present Illness - General Chief Complaint: General Stated Complaint: snycope Time Seen by Provider: 04/01/19 10:57 Source: patient - History of Present Illness Initial Comments: 33 yo female with PMH of AUB, hx of upper GI bleed, asthma who presents with cc of vomiting blood and syncope. Pt states yesterday afternoon she drank 2 glasses of wine and took ibuprofen 600 mg PO around 4 pm for pelvic pain and menstrual cramping. At 7 pm she states she suddenly became nauseous and had large emesis of bright red blood mixed with gastric contents (approx 1 cup full). 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 She reports dark stools with dark blood in the stool since yesterday as well. Reports also epigastric pain - constant, pressure-like, radiates to her back, currently 2/10 severity, was worse last night, nothing tried for relief. Reports hx of vomiting blood about 1 year ago and had EGD in [place] and was told she had "esophageal polyps." Reports she has thin blood normally. Does not take any blood thinners. States she has hx of heavy menstrual bleeding - states has been on her period for 2 months now, increased flow the past week - states has gone through >80 pads in past 5 days. Her PCP (Dr. Martinez) told her to come to the ED. While getting checked in, she had brief syncopal episode in the waiting room. Allergies/Adverse Reactions: Allergies Cephalexin [From Keflex] Allergy (Verified 04/01/19 11:03) Citalopram [From Celexa] Allergy (Verified 04/01/19 11:03) Morphine Allergy (Verified 04/01/19 11:03) Phenytoin [From Dilantin] Allergy (Verified 04/01/19 11:03) increases seizures Home Medications: Ambulatory Orders Acetaminophen W/ Codeine [Tylenol/Codeine #4 300-60 mg] 1 ea PO Q4HR PRN #14 tab 11/08/18 Carisoprodol [Soma] 350 mg PO TID PRN #14 tab 11/08/18 Varenicline [Chantix] 0.5 mg PO DAILY 11/08/18 Review of Systems - Review of Systems Review of Systems: 04/01/19 11:06 as per HPI All other Systems: Reviewed and Negative Past Medical History (General) - Patient Medical History Hx Seizures: Yes Hx Stroke: No Hx Dementia: No Hx Asthma: No Hx of COPD: Yes Hx Cardiac Disorders: Yes - Afib/SVT Hx Congestive Heart Failure: No Hx Pacemaker: No Hx Hypertension: No Hx Thyroid Disease: No Hx Diabetes: No Hx Gastroesophageal Reflux: No Hx Renal Disease: No Hx Cancer: No Hx of HIV: No Hx Hepatitis C: No Hx MRSA: No - Vaccination History Hx Tetanus, Diphtheria Vaccination: No Hx Influenza Vaccination: No Hx Pneumococcal Vaccination: No - Social History Hx Tobacco Use: Yes Hx Chewing Tobacco Use: No Hx Alcohol Use: Yes Hx Substance Use: No Hx Substance Use Treatment: No Hx Depression: No Hx Physical Abuse: No Hx Emotional Abuse: No Hx Suspected Abuse: No - Female History Hx Last Menstrual Period: 10/25/18 Patient : No - Denies Family Medical History - Family History Mother Family History: Unknown Living Status: Unknown Hx Cardiac Disease: Yes - dad Hx Family;Other: Seizure-mom sister;Kidney stone siblings Physical Exam - Physical Exam General Appearance: Alert, Comfortable, No apparent distress Eye Exam: bilateral normal Ears, Nose, Throat: hearing grossly normal, normal ENT inspection, normal pharynx Neck: non-tender, full range of motion, supple, normal inspection Respiratory: no respiratory distress, wheezing - exp wheezes throughout, other - no rales, rhonchi Cardiovascular/Chest: normal peripheral pulses, regular rate, rhythm, no edema, no gallop, no JVD, no murmur Peripheral Pulses: radial,right: 2+, radial,left: 2+ Gastrointestinal/Abdominal: normal bowel sounds, soft, no organomegaly, tenderness - moderate to epigastric region, mild to suprapubic region/RLQ/LLQ Back Exam: normal inspection, no CVA tenderness Extremity: normal range of motion, non-tender, normal inspection, no pedal edema, no calf tenderness 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 -vitals stable on arrival, pt in NAD -obtain CBC, CMP, coags, UA, hcg, amylase, lipase -place PIV, 1 L NS bolus, Protonix 80 mg IV, Zofran 4 mg IV 04/01/19 12:43 -Pt has remained stable, no further vomiting in ED. H/H 15.8/45, PLTs 250,000. Remainder of labs unremarkable. Bedside MEREDITH performed - small external h emorrhoids without hemorrhage - no stool in rectal vault, exam pretty unremarkable. -Spoke with hospitalist here [facility] who feels pt needs transfer for GI consultation. I agree. Spoke with Dr. Coleman, hospitalist at [facility], who accepts pt direct to med/surg floor there for GI consultation. Stable to go via ground EMS. Transfer nurse states it may be 1-2 hours before a bed is available. As pt is stable, will continue to observe in ED while awaiting a bed. 04/01/19 14:30 -Pt remained stable until point of discharge without further emesis. Transported to [facility] via EMS in stable condition. Loco Pablo MD Billing #[id number] - Results/Orders Results/Orders: 04/01/19 10:57 IV Care:Saline Lock per Protoc QSHIFT Laboratory Results - last 24 hr 04/01/19 04/01/19 04/01/19 10:50 10:50 10:50 WBC 6.9 RBC 4.89 Hgb 15.8 Hct 45.4 MCV 92.9 MCH 32.4 H MCHC 34.8 RDW 13.1 Plt Count 250 MPV 7.4 Absolute Neuts (auto) 5.30 Absolute Lymphs (auto) 1.00 Absolute Monos (auto) 0.60 Absolute Eos (auto) 0.10 Absolute Basos (auto) 0.00 Neutrophils % 76.6 Lymphocytes % 13.8 L Monocytes % 8.0 Eosinophils % 0.9 L Basophils % 0.7 Sodium 139 Potassium 3.9 Chloride 103 Carbon Dioxide 26 Anion Gap 13.9 BUN 12 Creatinine 0.71 BUN/Creatinine Ratio 16.9 Random Glucose 79 Serum Osmolality 276.2 Calcium 9.5 Total Bilirubin 0.4 Direct Bilirubin 0.1 Indirect Bilirubin 0.3 AST 25 ALT 19 Alkaline Phosphatase 51 Troponin I Serum Total Protein 7.4 Albumin 4.2 Amylase 42 Lipase 29 Urine Color Urine Appearance Urine pH Ur Specific [place] Urine Protein Urine Glucose (UA) Urine Ketones Urine Blood Urine Nitrite Urine Bilirubin Urine Urobilinogen Ur Leukocyte Esterase Urine RBC Urine WBC Ur Epithelial Cells Amorphous Sediment Urine Bacteria Urine HCG, Qual Negative Stool Occult Blood 04/01/19 04/01/19 04/01/19 10:50 11:35 11:40 WBC RBC Hgb Hct MCV MCH MCHC RDW Plt Count MPV Absolute Neuts (auto) Absolute Lymphs (auto) Absolute Monos (auto) Absolute Eos (auto) Absolute Basos (auto) Neutrophils % Lymphocytes % Monocytes % Eosinophils % Basophils % Sodium Potassium Chloride Carbon Dioxide Anion Gap BUN Creatinine BUN/Creatinine Ratio Random Glucose Serum Osmolality Calcium Total Bilirubin Direct Bilirubin Indirect Bilirubin AST ALT Alkaline Phosphatase Troponin I < 0.02 Serum Total Protein Albumin Amylase Lipase Urine Color Yellow Urine Appearance Clear Urine pH 7.5 Ur Specific [place] 1.020 Urine Protein Negative Urine Glucose (UA) Negative Urine Ketones Negative Urine Blood Negative Urine Nitrite Negative Urine Bilirubin Negative Urine Urobilinogen 0.2 Ur Leukocyte Esterase Negative Urine RBC 0-1 Urine WBC 0-1 Ur Epithelial Cells 1-3 Amorphous Sediment Trace Urine Bacteria Rare Urine HCG, Qual Stool Occult Blood Negative Departure - Departure Clinical Impression: Hematemesis, Hematochezia Time of Disposition: 12:33 Disposition: Transfer to Hospital Condition: Fair Departure Forms: ED Discharge - Pt. Copy, Patient Portal Self Enrollment Referrals: ROMI MARTINEZ IV, LEAD ATHLETE [Primary Care Provider] - 1-2 Weeks Home Medications: Ambulatory Orders Acetaminophen W/ Codeine [Tylenol/Codeine #4 300-60 mg] 1 ea PO Q4HR PRN #14 tab 11/08/18 Carisoprodol [Soma] 350 mg PO TID PRN #14 tab 11/08/18 Varenicline [Chantix] 0.5 mg PO DAILY 11/08/18 Transfer to Outside Facility - Transfer Information Decision to Transfer Date: 04/01/19 Decision to Transfer Time: 12:33 Reason for Transfer: required specialist not available - GI Accepting Provider:: Dr. Coleman Accepting Facility: [facility]
[2019-04-01] MEDS ORDERED: SODIUM CHLORIDE 0.9% 1000ML 1,000 ML IVS ONE (11:06)
[2019-04-01 15:13] VITALS: BP 138/74; TEMP 97.8; O2SAT 98
== END 2019-04-01 15:13 | disposition short-term general hospital (02) ==
LOC: ER 10:44
DX: K92.0 Hematemesis (principal); K92.1 Melena; R10.9 Unspecified abdominal pain; R06.2 Wheezing; R55 Syncope and collapse; J44.9 Chronic obstructive pulmonary disease, unspecified; R56.9 Unspecified convulsions; I48.91 Unspecified atrial fibrillation; Z87.891 Personal history of nicotine dependence; Z79.899 Other long term (current) drug therapy; Z88.1 Allergy status to other antibiotic agents; Z88.8 Allergy status to other drugs, medicaments and biological substances; Z88.5 Allergy status to narcotic agent
CPT/HCPCS: 36415; 80048; 80076; 81001; 81025; 82150; 82270; 83690; 84484; 85025; 87502; 94640; J2405; J7030; J7611

== ENCOUNTER → 2019-08-13 | Outpatient (CLI) | payer BC | LOC: LAB.O 12:34 | PROVIDERS: ATTEND Nurse Practitioner Family | DX: K92.1 Melena (principal) ==

== ENCOUNTER 2020-04-23 14:37 | Emergency (ER) | payer BC ==
--- NOTE | 2020-04-23 14:53 | ED.PDOC ---
History of Present Illness - General Stated Complaint: Chest pain and dyspnea Time Seen by Provider: 04/23/20 14:51 - History of Present Illness Initial Comments: 34-year-old female with a history of asthma and Varicose veins complaining ofChest pain and dyspnea onset about 30 minutes prior to admission. The chest pain is pressure-like In nature, intermittent, currently none at present with a maximum pain of 9/10. Patient Also complains of shortness of breath. She is wheezing has a history of asthma. Patient has known retained fragments of the PICC line which was inserted previously and removed in March 2019.Patient also has known history of varicose veins in the right leg. She is currently complaining of increased pain and swelling of the right leg. This patient has no prior history of DVT or pulmonary embolism. Allergies/Adverse Reactions: Allergies Cephalexin [From Keflex] Allergy (Verified 04/23/20 15:11) Citalopram [From Celexa] Allergy (Verified 04/23/20 15:11) Morphine Allergy (Verified 04/23/20 15:11) Phenytoin [From Dilantin] Allergy (Verified 04/23/20 15:11) increases seizures Home Medications: Ambulatory Orders Acetaminophen W/ Codeine [Tylenol/Codeine #4 300-60 mg] 1 ea PO Q4HR PRN #14 tab 11/08/18 Carisoprodol [Soma] 350 mg PO TID PRN #14 tab 11/08/18 Varenicline [Chantix] 0.5 mg PO DAILY 11/08/18 predniSONE 20 mg PO DAILY 5 Days #15 tab 04/23/20 Review of Systems - Review of Systems Constitutional: States: no symptoms reported EENTM: States: no symptoms reported Respiratory: States: see HPI, short of breath, wheezing Cardiology: States: see HPI, chest pain Gastrointestinal/Abdominal: States: no symptoms reported Genitourinary: States: no symptoms reported Musculoskeletal: States: see HPI Skin: States: no symptoms reported Neurological: States: no symptoms reported Endocrine: States: no symptoms reported Hematologic/Lymphatic: States: no symptoms reported Past Medical History (General) - Patient Medical History Hx Seizures: Yes Hx Stroke: No Hx Dementia: No Hx Asthma: No Hx of COPD: Yes Hx Cardiac Disorders: Yes - Afib/SVT Hx Congestive Heart Failure: No Hx Pacemaker: No Hx Hypertension: No Hx Thyroid Disease: No Hx Diabetes: No Hx Gastroesophageal Reflux: No Hx Renal Disease: No Hx Cancer: No Hx of HIV: No Hx Hepatitis C: No Hx MRSA: No - Vaccination History Hx Tetanus, Diphtheria Vaccination: No Hx Influenza Vaccination: No Hx Pneumococcal Vaccination: No - Social History Hx Tobacco Use: Yes Hx Chewing Tobacco Use: No Hx Alcohol Use: Yes Hx Substance Use: No Hx Substance Use Treatment: No Hx Depression: No Hx Physical Abuse: No Hx Emotional Abuse: No Hx Suspected Abuse: No - Female History Hx Last Menstrual Period: 10/25/18 Patient : No - Denies Family Medical History - Family History Mother Family History: Unknown Living Status: Unknown Hx Cardiac Disease: Yes - dad Hx Family;Other: Seizure-mom sister;Kidney stone siblings Physical Exam - Physical Exam General Appearance: Alert, Comfortable Eyes, Ears, Nose, Throat Exam: PERRL/EOMI, normal ENT inspection Neck: non-tender, full range of motion Respiratory: chest non-tender, wheezing - Moderate, diffuse, with Good airflow throughout Cardiovascular/Chest: normal peripheral pulses, regular rate, rhythm Gastrointestinal/Abdominal: normal bowel sounds, non tender, soft Extremity: calf tenderness - Mild tenderness of the right calf without observable swelling. Some localized erythema on the medial and lateral surfaces. 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 5:30 PM: Patient is comfortable supine lungs are clear without wheezing. All diagnostic findings and follow-up and treatment plan were explained to the patient and her .Prednisone 60 mg by mouth given. Medical decision making 34-year-old female with a history of asthma presenting with shortness of breath. Patient has retained fragments from a former PICC line in her great vessels but they are not causing any acute pathology or pulmonary embolism at this time. Patient has some varicose veins in her right calf with some pain related to the veins but there is no evidence of a DVT on ultrasound or exam at this time. Patient is suitable for outpatient treatment of her asthma and follow-up with a vascular surgeon regarding the retained catheter fragments. - Results/Orders Results/Orders: Electrocardiogram 92/min, normal rhythm. No acute changes noted. Normal tracing Rapid nasopharyngeal swab for COVID-19 negative. EXAM DESCRIPTION: Venous,Lower Extremity RT: ULTRASOUND. CLINICAL HISTORY: r/o DVT COMPARISON: None Available. TECHNIQUE: Luther-scale and doppler sonographic evaluation of the deep venous system of the right lower extremity. FINDINGS: Doppler evaluation shows normal color flow and normal phasicity and augmentation of the right common femoral vein, right femoral vein, popliteal vein, right greater saphenous vein, junction with the CFV. Also normal color flow and normal phasicity and augmentation of the tab peroneal, and posterior tibial vein. The right lower extremity deep veins were completely compressible; normal occlusion with transducer pressure. Luther-scale survey showed no echogenic thrombus within these veins. IMPRESSION: 1. Duplex ultrasound evaluation of the right lower extremity deep venous system showing no evidence of thrombosis. Electronically signed by: Grey Freeman MD 04/23/2020 4:01 PM TURRET PRESS OPERATOR EXAM DESCRIPTION: Chest,1 View CLINICAL HISTORY: 34 years Female, sob COMPARISON: Previous study August 14, 2017 TECHNIQUE: AP portable chest. FINDINGS: Heart size is normal with normal pulmonary vascularity. No consolidating infiltrate. No pulmonary mass or worrisome nodule. No pneumothorax or pleural effusion. Bones are unremarkable. IMPRESSION: No acute process is identified in the chest. Electronically signed by: Silver Ramirez MD 04/23/2020 3:51 PM TURRET PRESS OPERATOR 04/23/20 15:04 CTA Chest [CT] Stat 04/23/20 15:15 EKG STAT Laboratory Results - last 24 hr 04/23/20 04/23/20 04/23/20 15:10 15:10 15:37 PT 10.4 INR 1.05 PTT (SP) 26.8 D-Dimer, Quantitative 134.0 Sodium 138 Potassium 3.6 Chloride 104 Carbon Dioxide 24 Anion Gap 13.6 BUN 13 Creatinine 0.73 BUN/Creatinine Ratio 17.8 Random Glucose 132 H Serum Osmolality 277.7 Calcium 9.4 Total Bilirubin 0.9 AST 40 ALT 26 Alkaline Phosphatase 82 Creatine Kinase 42 CK-MB (CK-2) 0.7 CK-MB (CK-2) % Not Reportable Troponin I < 0.02 Serum Total Protein 7.8 Albumin 4.4 Globulin 3.4 Albumin/Globulin Ratio 1.3 Vital Signs - 24 hr 04/23/20 04/23/20 04/23/20 14:45 15:02 15:34 Temperature 98.7 F Pulse Rate [ 102 H 102 H 85 brachial] Respiratory 20 20 20 Rate Blood Pressure 160/116 143/86 [Right Arm] O2 Sat by Pulse 98 97 Oximetry EXAM DESCRIPTION: CTA Chest CLINICAL HISTORY: R/O PE. HAs retained catheter fragments gr vess COMPARISON: None. TECHNIQUE: Postcontrast CT images of the chest are obtained using pulmonary embolism imaging protocol. Three-D MIP reconstructed images of the arterial vasculature are obtained. Coronal and sagittal reconstructed images of the also provided. This exam was performed according to our departmental dose-optimization program, which includes automated exposure control, adjustment of the mA and/or kV according to patient size and/or use of iterative reconstruction technique . FINDINGS: Heart is normal size. Thoracic aorta and great vessels are unremarkable. No aneurysmal dilatation or dissection. Linear areas of bone cement/methylmethacrylate are seen in branches of the right upper lobe and right lower lobe pulmonary art eries. Similar cement is seen in mid and distal branches of the left upper lobe and lingula pulmonary arteries. Small amount of cement is seen in branches of the right middle lobe. No hypoechoic thrombus is seen in the pulmonary arteries. Catheter fragment is seen extending from anterior branch of the mid left upper lobe and to the first segment branch of the left lower lobe pulmonary artery. No pathologically enlarged mediastinal, hilar, or axillary lymphadenopathy seen. No pleural or pericardial effusion. Visualized portion of the upper abdomen shows no acute findings. 3 mm nonobstructing calcification in an anterior lower pole calyx of the right kidney is seen. Question 2 mm nonobstructing calcification in an upper pole calyx of the left kidney. Lungs are normally aerated and clear without acute infiltrate or consolidation. No worrisome pulmonary nodules. Compression fracture deformity status post vertebral augmentation from T7 through T9 are seen. IMPRESSION: No CTA evidence of hypoechoic pulmonary embolism. Several areas of methylmethacrylate/bone cement are seen in the pulmonary arteries of the lungs bilaterally. Vascular catheter fragment is seen in portions of the left upper and lower lobe pulmonary arteries. Nonobstructing bilateral nephrolithiasis suspected. Electronically signed by: Joshua Hawkins MD 04/23/2020 4:50 PM TURRET PRESS OPERATOR 04/23/20 15:15 EKG STAT Laboratory Results - last 24 hr 04/23/20 04/23/20 04/23/20 15:10 15:10 15:37 WBC RBC Hgb Hct MCV MCH MCHC RDW Plt Count MPV Absolute Neuts (auto) Absolute Lymphs (auto) Absolute Monos (auto) Absolute Eos (auto) Absolute Basos (auto) Neutrophils % Lymphocytes % Monocytes % Eosinophils % Basophils % PT 10.4 INR 1.05 PTT (SP) 26.8 D-Dimer, Quantitative 134.0 Sodium 138 Potassium 3.6 Chloride 104 Carbon Dioxide 24 Anion Gap 13.6 BUN 13 Creatinine 0.73 BUN/Creatinine Ratio 17.8 Random Glucose 132 H Serum Osmolality 277.7 Calcium 9.4 Total Bilirubin 0.9 AST 40 ALT 26 Alkaline Phosphatase 82 Creatine Kinase 42 CK-MB (CK-2) 0.7 CK-MB (CK-2) % Not Reportable Troponin I < 0.02 Serum Total Protein 7.8 Albumin 4.4 Globulin 3.4 Albumin/Globulin Ratio 1.3 04/23/20 16:51 WBC 6.6 RBC 4.82 Hgb 15.5 Hct 44.9 MCV 93.2 MCH 32.1 H MCHC 34.4 RDW 12.9 Plt Count 194 MPV 7.1 L Absolute Neuts (auto) 4.80 Absolute Lymphs (auto) 1.10 Absolute Monos (auto) 0.60 Absolute Eos (auto) 0.10 Absolute Basos (auto) 0.00 Neutrophils % 71.7 Lymphocytes % 17.1 L Monocytes % 9.6 H Eosinophils % 1.2 Basophils % 0.4 PT INR PTT (SP) D-Dimer, Quantitative Sodium Potassium Chloride Carbon Dioxide Anion Gap BUN Creatinine BUN/Creatinine Ratio Random Glucose Serum Osmolality Calcium Total Bilirubin AST ALT Alkaline Phosphatase Creatine Kinase CK-MB (CK-2) CK-MB (CK-2) % Troponin I Serum Total Protein Albumin Globulin Albumin/Globulin Ratio Departure - Departure Clinical Impression: Dyspnea, Asthma Time of Disposition: 17:29 Disposition: Discharge to Home or Self Care Condition: Good Departure Forms: ED Discharge - Pt. Copy Diet: regular diet Referrals: ROMI CORONADO IV PICKER/PULLER [Primary Care Provider] - 1-2 Weeks Prescriptions: predniSONE 20 mg PO DAILY 5 Days #15 tab Home Medications: Ambulatory Orders Acetaminophen W/ Codeine [Tylenol/Codeine #4 300-60 mg] 1 ea PO Q4HR PRN #14 tab 11/08/18 Carisoprodol [Soma] 350 mg PO TID PRN #14 tab 11/08/18 Varenicline [Chantix] 0.5 mg PO DAILY 11/08/18 predniSONE 20 mg PO DAILY 5 Days #15 tab 04/23/20 Additional Instructions: Avoid smoking. Use your inhaler at home as needed for wheezing. Return for progressively increasing shortness of breath or chest pain.See your primary care physician for care of your asthma and your vascular surgeon regarding the retained catheter fragments.
[2020-04-23] MEDS ORDERED: IPRATROPIUM/ALBUTEROL 3 ML VIAL NEB ONE (15:07)
--- NOTE | 2020-04-23 15:53 | RAD ---
EXAM DESCRIPTION: Chest,1 View CLINICAL HISTORY: 34 years Female, sob COMPARISON: Previous study August 14, 2017 TECHNIQUE: AP portable chest. FINDINGS: Heart size is normal with normal pulmonary vascularity. No consolidating infiltrate. No pulmonary mass or worrisome nodule. No pneumothorax or pleural effusion. Bones are unremarkable. IMPRESSION: No acute process is identified in the chest. Electronically signed by: Silver Ramirez MD 04/23/2020 3:51 PM GENERAL LEDGER BOOKKEEPER
--- NOTE | 2020-04-23 16:03 | US ---
EXAM DESCRIPTION: Venous,Lower Extremity RT: ULTRASOUND. CLINICAL HISTORY: r/o DVT COMPARISON: None Available. TECHNIQUE: Luther-scale and doppler sonographic evaluation of the deep venous system of the right lower extremity. FINDINGS: Doppler evaluation shows normal color flow and normal phasicity and augmentation of the right common femoral vein, right femoral vein, popliteal vein, right greater saphenous vein, junction with the CFV. Also normal color flow and normal phasicity and augmentation of the tab peroneal, and posterior tibial vein. The right lower extremity deep veins were completely compressible; normal occlusion with transducer pressure. Luther-scale survey showed no echogenic thrombus within these veins. IMPRESSION: 1. Duplex ultrasound evaluation of the right lower extremity deep venous system showing no evidence of thrombosis. Electronically signed by: Grey Freeman MD 04/23/2020 4:01 PM [facility]
[2020-04-23] MEDS ORDERED: ACETAMINOPHEN 500 MG TAB ONE (16:40)
--- NOTE | 2020-04-23 16:51 | CT ---
EXAM DESCRIPTION: CTA Chest CLINICAL HISTORY: R/O PE. HAs retained catheter fragments gr vess COMPARISON: None. TECHNIQUE: Postcontrast CT images of the chest are obtained using pulmonary embolism imaging protocol. Three-D MIP reconstructed images of the arterial vasculature are obtained. Coronal and sagittal reconstructed images of the also provided. This exam was performed according to our departmental dose-optimization program, which includes automated exposure control, adjustment of the mA and/or kV according to patient size and/or use of iterative reconstruction technique . FINDINGS: Heart is normal size. Thoracic aorta and great vessels are unremarkable. No aneurysmal dilatation or dissection. Linear areas of bone cement/methylmethacrylate are seen in branches of the right upper lobe and right lower lobe pulmonary arteries. Similar cement is seen in mid and distal branches of the left upper lobe and lingula pulmonary arteries. Small amount of cement is seen in branches of the right middle lobe. No hypoechoic thrombus is seen in the pulmonary arteries. Catheter fragment is seen extending from anterior branch of the mid left upper lobe and to the first segment branch of the left lower lobe pulmonary artery. No pathologically enlarged mediastinal, hilar, or axillary lymphadenopathy seen. No pleural or pericardial effusion. Visualized portion of the upper abdomen shows no acute findings. 3 mm nonobstructing calcification in an anterior lower pole calyx of the right kidney is seen. Question 2 mm nonobstructing calcification in an upper pole calyx of the left kidney. Lungs are normally aerated and clear without acute infiltrate or consolidation. No worrisome pulmonary nodules. Compression fracture deformity status post vertebral augmentation from T7 through T9 are seen. IMPRESSION: No CTA evidence of hypoechoic pulmonary embolism. Several areas of methylmethacrylate/bone cement are seen in the pulmonary arteries of the lungs bilaterally. Vascular catheter fragment is seen in portions of the left upper and lower lobe pulmonary arteries. Nonobstructing bilateral nephrolithiasis suspected. Electronically signed by: Joshua Hawkins MD 04/23/2020 4:50 PM CADDY MASTER
[2020-04-23] MEDS ORDERED: ACETAMINOPHEN 500 MG TAB PO ONE (17:03)
[2020-04-23] MEDS ORDERED: predniSONE 20 MG TAB PO ONE (17:26)
[2020-04-23 17:51] VITALS: BP 143/92; TEMP 97.8; O2SAT 97
== END 2020-04-23 17:50 | disposition home or self-care (01) ==
LOC: ER 14:37
DX: J44.9 Chronic obstructive pulmonary disease, unspecified (principal); R07.9 Chest pain, unspecified; M79.604 Pain in right leg; I48.91 Unspecified atrial fibrillation; R56.9 Unspecified convulsions; Z20.822 Contact with and (suspected) exposure to COVID-19; Z87.891 Personal history of nicotine dependence; Z88.1 Allergy status to other antibiotic agents; Z88.5 Allergy status to narcotic agent; Z88.8 Allergy status to other drugs, medicaments and biological substances
CPT/HCPCS: 71045; 71275; 80053; 82550; 82553; 84484; 85025; 85379; 85610; 85730; 87635; 93005; 93971; 94640; J7512; J7620